=== PATIENT | male | born 1970 | race Caucasian/White ===

== ENCOUNTER 2017-08-03 09:12 | Day surgery (SDC) | payer OTHER ==
[2017-08-02 14:08] VITALS: BMI 36.6
[2017-08-03 10:22] VITALS: TEMP 97.4
[2017-08-03] MEDS ORDERED: PROPOFOL 20 ML ONE ×3 (10:23)
[2017-08-03 11:11] VITALS: PULSE 56
[2017-08-03 12:31] VITALS: BP 105/70
--- NOTE | 2017-08-06 13:03 | PATH ---
Surgical Pathology Report Patient Name: DESIREE DHALIWAL [facility] Rec. #: [id number] /Age/Gender: 1970 (Age: 46) / M Account: [id number] Location: [facility] Taken: 08/03/2017 Received: 08/03/2017 Reported: 08/06/2017 Physicians: Jyothi Burton M.D. Specimen(s) Received A: CECAL POLYP B: ANAL PAPILLOMA Clinical History Preoperative diagnosis: Adenoma surveillance Postoperative diagnosis: Colon polyps Final Diagnosis A. COLON, CECUM, BIOPSY: COLONIC MUCOSA WITH NO PATHOLOGIC CHANGES. NO ACTIVE COLITIS, ARCHITECTURAL DISTORTION, GRANULOMATA, OR DYSPLASIA IDENTIFIED. NO MICROSCOPIC COLITIS IDENTIFIED (NO LYMPHOCYTIC OR COLLAGENOUS COLITIS IDENTIFIED). B. ANAL PAPILLOMA, POLYPECTOMY: BENIGN SQUAMOUS MUCOSA WITH VASCULAR ECTASIA. NO DYSPLASIA IDENTIFIED. Electronically Signed Richard Vick M.D. Gross Description A. Received in formalin, labeled "biopsy cecal polyp" are 5 saunders, irregular portions of soft tissue ranging from 0.1-0.6 cm. in greatest dimension. The specimens are submitted in toto in one cassette. B. Received in formalin labeled "anal papilloma," is a 0.7 x 0.6 x 0.5 cm saunders, polypoid portion of soft tissue. The specimen is bisected and entirely submitted in one cassette. 08/03/2017 saudi08/03/2017
== END 2017-08-03 11:15 | disposition home or self-care (01) ==
LOC: JASU-ENDO 09:12
PROVIDERS: ATTEND Internal Medicine Gastroenterology
PROC: 0DBH8ZX Excision of Cecum, Via Natural or Artificial Opening Endoscopic, Diagnostic (ICD-10-PCS; 2017-08-03)
PROC: 0DBP8ZX Excision of Rectum, Via Natural or Artificial Opening Endoscopic, Diagnostic (ICD-10-PCS; principal; 2017-08-03 10:00)
DX: Z86.010 Personal history of colon polyps (principal); D12.0 Benign neoplasm of cecum; D12.9 Benign neoplasm of anus and anal canal

== ENCOUNTER 2018-08-01 08:41 | Emergency (ER) | payer OTHER ==
[2018-08-01 08:50] VITALS: BP 124/77; PULSE 71; TEMP 98.2; BMI 32.9
--- NOTE | 2018-08-01 09:03 | PDOC ---
History of Present Illness - General Chief Complaint: Wound Stated Complaint: FINGER PAIN Time Seen by Provider: 08/01/18 08:57 History Source: Patient Exam Limitations: No Limitations - History of Present Illness Initial Comments: 08/01/18 09:29 Pt is a 47 y/o M with HTN, who presents to the ED with 2 days of a pus filled blister to his R thumb. 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 Pt believes he has a blister in his thumb, which caused the infection. Pt is L hand dominant. Admits to pain around the sight of the blister. Denies numbness and weakness to the extremities, limited ROM, fever. Past History - Travel Traveled outside of the country in the last 30 days: No Close contact w/someone who was outside of country & ill: No - Past Medical History Allergies/Adverse Reactions: Allergies Allergy/AdvReac Type Severity Reaction Status Date / Time latex [Latex] Allergy Intermediate Hives Verified 08/01/18 08:48 Home Medications: Ambulatory Orders Losartan Potassium [Cozaar] 50 mg PO DAILY 01/04/12 Metoprolol Succinate [Toprol XL -] 25 mg PO BID 08/27/13 Cephalexin Monohydrate [Keflex -] 500 mg PO BID #14 capsule 08/01/18 Anemia: No Asthma: No Cancer: No Cardiac Disorders: No CVA: No COPD: No CHF: No Dementia: No Diabetes: No GI Disorders: Yes (H/O ADENOMAS, DIVERTICULOSIS) Disorders: No HTN: Yes Hypercholesterolemia: Yes Liver Disease: Yes (NAFLD) Seizures: No Thyroid Disease: No - Surgical History Abdominal Surgery: Yes (CECILLE. INGUNAL HERNIAS) Appendectomy: No Cardiac Surgery: No Cholecystectomy: No Lung Surgery: No Neurologic Surgery: No Orthopedic Surgery: No - Suicide/Smoking/Psychosocial Hx Smoking Status: No Smoking History: Never smoked Have you smoked in the past 12 months: No Number of Cigarettes Smoked Daily: 0 Hx Alcohol Use: No Drug/Substance Use Hx: No Substance Use Type: None Hx Substance Use Treatment: No Review of Systems - Review of Systems Able to Perform ROS?: Yes Comments:: 08/01/18 09:02 CONSTITUTIONAL: Absent: fever, chills, diaphoresis, generalized weakness, malaise, loss of appetite MUSCULOSKELETAL: Absent: myalgia, arthralgia, joint swelling SKIN: Present: Splinter in R thumb with pus collection Absent: rash, itching, pallor NEUROLOGIC: Absent: headache, focal weakness or paresthesias, dizziness, unsteady gait, seizure, mental status changes, bladder or bowel incontinence PSYCHIATRIC: Absent: anxiety, depression, suicidal or homicidal ideation, hallucinations. Is the patient limited Turkish proficient: No *Physical Exam - Vital Signs Last Vital Signs Temp Pulse Resp BP Pulse Ox 98.2 F 71 16 124/77 97 08/01/18 08:47 08/01/18 08:47 08/01/18 08:47 08/01/18 08:47 08/01/18 08:47 - Physical Exam Comments: 08/01/18 09:03 GENERAL: The patient is awake, alert, and fully oriented, in no acute distress. HEAD: Normal with no signs of trauma. EYES: Pupils equal, round and reactive to light, extraocular movements intact, sclera anicteric, conjunctiva clear. EXTREMITIES: Normal range of motion, no edema. NEUROLOGICAL: Normal speech, normal gait. PSYCH: Normal mood, normal affect. SKIN: non-circumferential dime sized pus collection of the medial R thumb with possible foreign body (splinter?). Warm, Dry, normal turgor, no rashes noted. Moderate Sedation - Procedure Monitoring Vital Signs: Procedure Monitoring Vital Signs Temperature 98.2 F 08/01/18 08:47 Pulse Rate 71 08/01/18 08:47 Respiratory Rate 16 08/01/18 08:47 Blood Pressure 124/77 08/01/18 08:47 O2 Sat by Pulse Oximetry (%) 97 08/01/18 08:47 Procedures - Incision and Drainage I&D Site: Right: Other (thumb) Betadine cleansed: Yes Blade Size: 18 gauge needle Complications: none Dressing: Yes Medical Decision Making - Medical Decision Making 08/01/18 10:33 Pt is a 47 y/o M who presents to the ED with an abscess to his R thumb with an apparent foreign body -The R thumb was I&D's with an 18 gauge needle -A 1cm splinter was removed from the wound -Pus was drained; wound explored with no further foreign body found -Tetanus updated -Will place on Keflex -DC home -I discussed the physical exam findings, ancillary test results and final diagnoses with the patient. I answered all of the patient's questions. The patient was satisfied with the care received and felt comfortable with the discharge plan and treatment plan. The Patient agrees to follow up with the primary care physician/specialist within 24-72 hours. Return precautions were given. *DC/Admit/Observation/Transfer Diagnosis at time of Disposition: Encounter for incision and drainage procedure, Foreign body - Discharge Dispostion Disposition: HOME Condition at time of disposition: Stable Decision to Admit order: No - Referrals Referrals: Mathieu Ruffin MD [Staff Physician] - - Patient Instructions Printed Discharge Instructions: DI for Incision and Drainage of a Skin Abscess Additional Instructions: You had a splinter in your R thumb It was removed today and you had the pus drained from the site (incision and drainage) Please soak the finger in warm water 3 times a day Take the Keflex twice a day for one week Keep the area clean and dry Follow up with you primary care doctor this week Return to the ED for worsening pain around the finger, redness around the site, fever, or if you have any changes in your symptoms - Post Discharge Activity Forms/Work/School Notes: Back to Work
[2018-08-01] MEDS ORDERED: IBUPROFEN 400 MG TABLET (FP) PO ONE ×2 (09:42→09:52)
[2018-08-01] MEDS ORDERED: DIPHTH,PERTUSS(ACELL),TET 0.5 ML DISP.SYRIN IM ONE ×2 (10:38)
== END 2018-08-01 10:47 | disposition home or self-care (01) ==
LOC: JERFT 08:41 → JER 08:41 → JERFT 10:47
PROC: 0HCFXZZ Extirpation of Matter from Right Hand Skin, External Approach (ICD-10-PCS; principal; 2018-08-01)
PROC: 3E0234Z Introduction of Serum, Toxoid and Vaccine into Muscle, Percutaneous Approach (ICD-10-PCS; 2018-08-01)
DX: S60.351A Superficial foreign body of right thumb, initial encounter (principal); W45.8XXA Other foreign body or object entering through skin, initial encounter; Y93.89 Activity, other specified; Y92.89 Other specified places as the place of occurrence of the external cause; Y99.8 Other external cause status
CPT/HCPCS: 90715; 99281-25

== ENCOUNTER 2018-11-25 09:28 | Emergency (ER) | payer OTHER ==
[2018-11-25 10:00] VITALS: BP 125/73; PULSE 75; TEMP 97.9; BMI 30.2
--- NOTE | 2018-11-25 10:42 | PDOC ---
History of Present Illness - General Chief Complaint: Foreign Body (FB) Stated Complaint: FINGER INJURY Time Seen by Provider: 11/25/18 10:21 History Source: Patient Exam Limitations: No Limitations Past History - Travel Traveled outside of the country in the last 30 days: No Close contact w/someone who was outside of country & ill: No - Past Medical History Allergies/Adverse Reactions: Allergies Allergy/AdvReac Type Severity Reaction Status Date / Time latex [Latex] Allergy Intermediate Hives Verified 11/25/18 09:57 Home Medications: Ambulatory Orders Losartan Potassium [Cozaar] 50 mg PO DAILY 01/04/12 Metoprolol Succinate [Toprol XL -] 25 mg PO BID 08/27/13 Sulfamethoxazole/Trimethoprim [Bactrim Ds -] 1 tab PO BID #14 tablet 11/25/18 Anemia: No Asthma: No Cancer: No Cardiac Disorders: No CVA: No COPD: No CHF: No Dementia: No Diabetes: No GI Disorders: Yes (H/O ADENOMAS, DIVERTICULOSIS) Disorders: No HTN: Yes Hypercholesterolemia: Yes Liver Disease: Yes (NAFLD) Seizures: No Thyroid Disease: No - Surgical History Abdominal Surgery: Yes (CEICLLE. INGUNAL HERNIAS) Appendectomy: No Cardiac Surgery: No Cholecystectomy: No Lung Surgery: No Neurologic Surgery: No Orthopedic Surgery: No - Immunization History Immunization Up to Date: Yes - Suicide/Smoking/Psychosocial Hx Smoking Status: No Smoking History: Never smoked Have you smoked in the past 12 months: No Number of Cigarettes Smoked Daily: 0 Hx Alcohol Use: No Drug/Substance Use Hx: No Substance Use Type: None Hx Substance Use Treatment: No Review of Systems - Review of Systems Able to Perform ROS?: Yes Comments:: 11/25/18 10:42 CONSTITUTIONAL: Absent: fever, chills, diaphoresis, generalized weakness, malaise, loss of appetite MUSCULOSKELETAL: Absent: myalgia, arthralgia, joint swelling SKIN: Present: foreign body, L 3rd finger Absent: rash, itching, pallor NEUROLOGIC: Absent: headache, focal weakness or paresthesias, dizziness, unsteady gait, seizure, mental status changes, bladder or bowel incontinence PSYCHIATRIC: Absent: anxiety, depression, suicidal or homicidal ideation, hallucinations. Is the patient limited Malay proficient: No *Physical Exam - Vital Signs Last Vital Signs Temp Pulse Resp BP Pulse Ox 97.9 F 75 18 125/73 99 11/25/18 09:58 11/25/18 09:58 11/25/18 09:58 11/25/18 09:58 11/25/18 09:58 - Physical Exam Comments: 11/25/18 10:42 GENERAL: The patient is awake, alert, and fully oriented, in no acute distress. HEAD: Normal with no signs of trauma. EYES: Pupils equal, round and reactive to light, extraocular movements intact, sclera anicteric, conjunctiva clear. EXTREMITIES: Normal range of motion, no edema. NEUROLOGICAL: Normal speech, normal gait. PSYCH: Normal mood, normal affect. SKIN: Small subcentimeter abscess to the palmar distal third finger .Warm, Dry, normal turgor, no rashes noted. Medical Decision Making - Medical Decision Making 11/25/18 12:16 the patient is a 48-year-old male who presents to the ER for a foreign body in his left third finger. 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 He states that he was doing a terminal clean on a room when he felt a splinter go to his finger as he was cleaning the wooden door. He states this happened yesterday. He woke up this morning and the area was pussy and this splinter was still in place. He presents to have the splinter removed. Denies fevers, chills, numbness and tingling weakness the affected extremity. A/P: Foreign body/abscess On exam small area of fluctuance to the left distal palmar third finger. Wound was soaked in Betadine and needle aspirated. Wound culture collected A 0.5 cm splinter removed from the left third finger. We will place patient on Bactrim as he was cleaning a room with possible MRSA Discharge home I discussed the physical exam findings, ancillary test results and final diagnoses with the patient. I answered all of the patient's questions. The patient was satisfied with the care received and felt comfortable with the discharge plan and treatment plan. The Patient agrees to follow up with the primary care physician/specialist within 24-72 hours. Return precautions were given. *DC/Admit/Observation/Transfer Diagnosis at time of Disposition: Foreign body, Encounter for incision and drainage procedure - Discharge Dispostion Disposition: HOME Condition at time of disposition: Stable Decision to Admit order: No - Prescriptions Prescriptions: Sulfamethoxazole/Trimethoprim [Bactrim Ds -] 1 tab PO BID #14 tablet - Referrals Referrals: Mathieu Ruffin MD [Staff Physician] - - Patient Instructions Printed Discharge Instructions: DI for Removal of Foreign Body From Skin Additional Instructions: You had a splinter removed from your finger today. Please continue to soak the hand 3 times a day in case there is any residual splinter. Take the Bactrim twice a day for 1 week. Follow up with her primary care doctor this week. Return to the ER for worsening pain, pus collection, or if you have any changes in your symptoms. - Post Discharge Activity Forms/Work/School Notes: Back to Work
== END 2018-11-25 11:23 | disposition home or self-care (01) ==
LOC: JERFT 09:28
PROC: 0HCGXZZ Extirpation of Matter from Left Hand Skin, External Approach (ICD-10-PCS; principal; 2018-11-25)
DX: S60.453A Superficial foreign body of left middle finger, initial encounter (principal); W45.8XXA Other foreign body or object entering through skin, initial encounter; W22.8XXA Striking against or struck by other objects, initial encounter; Y93.H9 Activity, other involving exterior property and land maintenance, building and construction; Y92.230 Patient room in hospital as the place of occurrence of the external cause; Y99.0 Civilian activity done for income or pay
CPT/HCPCS: 87070; 87205; 99281-25

== ENCOUNTER 2019-05-24 14:42 | Emergency (ER) | payer OTHER ==
[2019-05-24 14:46] VITALS: BP 148/93; PULSE 90; TEMP 98; BMI 34.7
--- NOTE | 2019-05-24 15:38 | PDOC ---
History of Present Illness - General Chief Complaint: Eye Problem Stated Complaint: RT EYE INJURY Time Seen by Provider: 05/24/19 15:04 History Source: Patient Exam Limitations: No Limitations - History of Present Illness Initial Comments: 05/24/19 15:34 48-year-old male with history of hypertension presents complaining of injury to right eye while at work today. He was unplugging a cord when the metal prongs struck the corner of his right eye. Last tetanus shot this year. Denies eye pain, blurry vision, head injury, headache or any other injuries. 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 ROS: GENERAL/CONSTITUTIONAL: No fever, chills, weakness, dizziness HEAD, EYES, EARS, NOSE AND THROAT: No changes in vision, No ear pain or discharge, No sore throat CARDIOVASCULAR: No chest pain RESPIRATORY: No shortness of breath or cough GASTROINTESTINAL: No pain, nausea, vomiting, diarrhea or constipation GENITOURINARY: No dysuria MUSCULOSKELETAL: No neck or back pain SKIN: Injury to corner of right eye NEUROLOGIC: No headache, vertigo, loss of consciousness, or loss of sensation PE: GENERAL: well-appearing, NAD HEAD: NCAT EYES: Pupils equal, round and reactive to light, sclera anicteric, conjunctiva clear, less than 0.5 cm, superficial laceration to the lateral canthus of the right eye, no active bleeding noted ENT: pharynx: no erythema, no exudate, uvula midline NECK: supple CHEST: nontender RESP: clear, no w/r/r CARDIO: rrr, no m/g/r ABD: +BS, soft, nontender, non distended BACK: no midline spinal ttp, no CVAT EXTREMITIES: Normal range of motion, no edema NEUROLOGICAL: Normal speech, normal gait SKIN: Warm, dry 05/24/19 16:03 05/24/19 16:04 Is this a multiple visit Asthma Patient?: No Past History - Past Medical History Allergies/Adverse Reactions: Allergies Allergy/AdvReac Type Severity Reaction Status Date / Time latex [Latex] Allergy Intermediate Hives Verified 05/24/19 14:46 Home Medications: Ambulatory Orders Losartan Potassium [Cozaar] 50 mg PO DAILY 01/04/12 Metoprolol Succinate [Toprol XL -] 25 mg PO BID 08/27/13 Sulfamethoxazole/Trimethoprim [Bactrim Ds -] 1 tab PO BID #14 tablet 11/25/18 Anemia: No Asthma: No Cancer: No Cardiac Disorders: No CVA: No COPD: No CHF: No Dementia: No Diabetes: No GI Disorders: Yes (H/O ADENOMAS, DIVERTICULOSIS) Disorders: No HTN: Yes Hypercholesterolemia: Yes Liver Disease: Yes (NAFLD) Seizures: No Thyroid Disease: No - Surgical History Abdominal Surgery: Yes (CECILLE. INGUNAL HERNIAS) Appendectomy: No Cardiac Surgery: No Cholecystectomy: No Lung Surgery: No Neurologic Surgery: No Orthopedic Surgery: No - Immunization History Immunization Up to Date: Yes - Psycho Social/Smoking Cessation Hx Smoking Status: No Smoking History: Never smoked Have you smoked in the past 12 months: No Number of Cigarettes Smoked Daily: 0 Hx Alcohol Use: No Drug/Substance Use Hx: No Substance Use Type: None Hx Substance Use Treatment: No *Physical Exam - Vital Signs Last Vital Signs Temp Pulse Resp BP Pulse Ox 98 F 90 18 148/93 99 05/24/19 14:43 05/24/19 14:43 05/24/19 14:43 05/24/19 14:43 05/24/19 14:43 Medical Decision Making - Medical Decision Making 05/24/19 16:05 48-year-old male with history of hypertension presents with superficial laceration to lateral canthus of right eye Tetanus received this year Ibuprofen 600 mg 1 tablet p.o. Laceration less than 0.5 cm -approximated with skin adhesive Note for work provided Discharge home with return precautions Discharge - Discharge Information Problems reviewed: Yes Clinical Impression/Diagnosis: Superficial laceration Condition: Stable Disposition: HOME - Admission No - Follow up/Referral - Patient Discharge Instructions Additional Instructions: Keep area clean and dry Do not apply soap or lotion to the affected area Take ibuprofen 600 mg every 6 hours as needed for pain Return to ED if fever, chills, redness, swelling or worsening pain to the area Follow-up with your doctor within 1 week You may return to work tomorrow - Post Discharge Activity Work/Back to School Note: Back to Work
[2019-05-24] MEDS ORDERED: IBUPROFEN 600 MG TABLET (FP) PO ONE ×2 (15:44→15:52)
== END 2019-05-24 16:14 | disposition home or self-care (01) ==
LOC: JERFT 14:42
PROC: 0HQ1XZZ Repair Face Skin, External Approach (ICD-10-PCS; principal; 2019-05-24)
DX: S01.111A Laceration without foreign body of right eyelid and periocular area, initial encounter (principal); W22.8XXA Striking against or struck by other objects, initial encounter; Y93.H9 Activity, other involving exterior property and land maintenance, building and construction; Y92.238 Other place in hospital as the place of occurrence of the external cause; Y99.0 Civilian activity done for income or pay; I10 Essential (primary) hypertension; K76.0 Fatty (change of) liver, not elsewhere classified; E78.00 Pure hypercholesterolemia, unspecified; Z87.19 Personal history of other diseases of the digestive system; Z91.040 Latex allergy status
CPT/HCPCS: 99281-25

== ENCOUNTER 2023-08-10 04:21 | Day surgery (SDC) | payer OTHER ==
[2023-08-07 16:00] VITALS: BMI 33.5
[2023-08-10 08:32] VITALS: TEMP 97.2
[2023-08-10 09:20] VITALS: BP 101/62; PULSE 57; RESP 16
== END 2023-08-10 09:45 | disposition home or self-care (01) ==
LOC: JASU-ENDO 04:21
PROVIDERS: ATTEND Internal Medicine Gastroenterology
PROC: 0DB98ZX Excision of Duodenum, Via Natural or Artificial Opening Endoscopic, Diagnostic (ICD-10-PCS; 2023-08-10)
PROC: 0DB78ZX Excision of Stomach, Pylorus, Via Natural or Artificial Opening Endoscopic, Diagnostic (ICD-10-PCS; 2023-08-10)
PROC: 0DB68ZX Excision of Stomach, Via Natural or Artificial Opening Endoscopic, Diagnostic (ICD-10-PCS; 2023-08-10)
PROC: 0DJD8ZZ Inspection of Lower Intestinal Tract, Via Natural or Artificial Opening Endoscopic (ICD-10-PCS; principal; 2023-08-10 08:00)
DX: Z12.11 Encounter for screening for malignant neoplasm of colon (principal); K57.30 Diverticulosis of large intestine without perforation or abscess without bleeding; Z86.010 Personal history of colon polyps; K31.7 Polyp of stomach and duodenum; K29.50 Unspecified chronic gastritis without bleeding
CPT/HCPCS: 43239; G0105; 88305-TC; 88342-TC

== ENCOUNTER 2024-01-15 11:44 | Emergency (ER) | payer OTHER ==
[2024-01-15] MEDS ORDERED: IBUPROFEN 600 MG TABLET (FP) PO ONE (11:46)
[2024-01-15 11:56] VITALS: BP 143/97; PULSE 74; RESP 20; TEMP 98; BMI 34.0
[2024-01-15] MEDS ORDERED: ACETAMINOPHEN 325 MG TABLET (FP) ONE (12:22)
[2024-01-15] MEDS: ACETAMINOPHEN 325 MG TABLET (FP) PO ONE (12:24)
== END 2024-01-15 14:04 | disposition home or self-care (01) ==
LOC: FER 11:44
DX: S39.012A Strain of muscle, fascia and tendon of lower back, initial encounter (principal); X58.XXXA Exposure to other specified factors, initial encounter
CPT/HCPCS: 72100-TC-FY; 99283-25

== ENCOUNTER 2024-04-29 14:01 | Emergency (ER) | payer OTHER ==
[2024-04-29] MEDS ORDERED: DIPHTH,PERTUSS(ACELL),TET 0.5 ML DISP.SYRIN IM ONE (15:21)
[2024-04-29] MEDS: DIPHTH,PERTUSS(ACELL),TET 0.5 ML DISP.SYRIN IM ONE (15:25)
[2024-04-29 16:28] VITALS: BP 123/80; PULSE 85; RESP 16; TEMP 97.6; BMI 32.9
== END 2024-04-29 15:34 | disposition home or self-care (01) ==
LOC: JERFT 14:01
PROC: 3E0234Z Introduction of Serum, Toxoid and Vaccine into Muscle, Percutaneous Approach (ICD-10-PCS; principal; 2024-04-29)
DX: S00.01XA Abrasion of scalp, initial encounter (principal); W26.8XXA Contact with other sharp object(s), not elsewhere classified, initial encounter; Z23 Encounter for immunization
CPT/HCPCS: 90715; 99284-25

== ENCOUNTER 2024-10-21 09:30 | Emergency (ER) | payer OTHER ==
[2024-10-21 10:06] VITALS: BP 130/73; PULSE 88; RESP 18; TEMP 98.4; BMI 32.9
[2024-10-21] MEDS ORDERED: ACETAMINOPHEN 500 MG TABLET (FP) ONE (10:29)
[2024-10-21] MEDS: ACETAMINOPHEN 500 MG TABLET (FP) PO ONE (10:31)
[2024-10-21] MEDS ORDERED: KETOROLAC TROMETHAMINE 30 MG/1 ML VIAL ONE (12:40)
[2024-10-21] MEDS: KETOROLAC TROMETHAMINE 30 MG/1 ML VIAL IM ONE (12:44)
== END 2024-10-21 13:50 | disposition home or self-care (01) ==
LOC: JER 09:30
PROC: 3E0233Z Introduction of Anti-inflammatory into Muscle, Percutaneous Approach (ICD-10-PCS; principal; 2024-10-21)
DX: M54.12 Radiculopathy, cervical region (principal); M79.602 Pain in left arm
CPT/HCPCS: 72125-TC; 99285-25